=== PATIENT | female | born 1955 | race Two or more races ===

== ENCOUNTER 2021-05-15 11:35 | Outpatient (CLI) | payer OTHER | END 2021-05-15 11:43 | disposition home or self-care (01) | LOC: RAD 11:35 | PROVIDERS: ATTEND Physical Medicine & Rehabilitation Hospice and Palliative Medicine | DX: M25.512 Pain in left shoulder (principal); M79.602 Pain in left arm ==

== ENCOUNTER 2025-02-14 12:52 | Outpatient (CLI) | payer OTHER | END 2025-02-14 12:57 | disposition home or self-care (01) | LOC: RAD 12:52 | PROVIDERS: ATTEND Physical Medicine & Rehabilitation Hospice and Palliative Medicine | DX: M25.511 Pain in right shoulder (principal); M75.51 Bursitis of right shoulder; M75.31 Calcific tendinitis of right shoulder ==